=== PATIENT | female | born 1955 | race Caucasian/White ===

== ENCOUNTER 2016-09-16 00:54 | Day surgery (SDC) | payer OTHER ==
[~2016-09-16] VITALS: Ht 157.5 cm; Wt 63.0 kg
[~2016-09-16 00:54] MED LIST: AMLO5TAB2 PO; ASPI-973 PO; ATRV10T PO; ESTR0.5T; HYDR-4003 PO; LEVO50TA6 PO; LISI10TA PO
[2016-09-16] MEDS ORDERED: Propofol 10 mg/mL 20 mL Inj ONE (00:55)
[2016-09-16] MEDS ORDERED: Lactated Ringer's 1,000 ML IV ONE (06:00)
[2016-09-16 14:33] VITALS: BP 106/59; PULSE 60; RESP 16; O2SAT 98
[2016-09-16] MEDS ORDERED: METO100T3 PO (14:35)
--- NOTE | 2016-09-16 15:15 | PCM.HPANE ---
Patient Data Date of Service: Sep 16, 2016 Surgeon Admitting Provider: Attending Provider:Db Ivey MD Primary Care Physician:Nicole Rai MD Other Provider:Flo Jackson Anesthesia Reason for Visit Early Satiety Ht/WT & BMI Height (Feet): 5 Height (Inches): 2 Weight (Kilograms): 63.05 Body Mass Index 25.00 Allergies Coded Allergies: Sulfa (Sulfonamide Antibiotics) (Verified Allergy, Unknown, 09/15/16) Past Anesthesia History Anesthesia History: Denies:: Abnormal Airway, Anesthesia Reactions, Difficult Intubation, Fam Anesthesia Reaction, Fam Malignant Hypertherm, Malignant Hyperthermia Diabetes History Hx Diabetes?: No MRSA MRSA: No Medications Blood Thinner: Aspirin Last Dose Blood Thinner: Sep 15, 2016 Hypertension Medication: Yes Home Meds Incl Beta Rhona: Yes Date Beta Rhona Taken: Sep 16, 2016 Time Beta Rhona Taken: 529 Reported Medications Metoprolol Tartrate 100 Mg [id number] Mg PO BID 30 Days Ref 0 09/16/16 Lisinopril 10 Mg [id number] Mg PO DAILY 30 Days Ref 0 09/15/16 Levothyroxine 50 Mcg [id number] Mcg PO DAILY Ref 0 09/15/16 Hydrocodone-Acetaminophen 5-325 mg 1 Each Tablet1 Tablet PO Q4H PRN For Pain Ref 0 09/15/16 Estradiol 0.5 Mg Tablet 09/15/16 Atorvastatin (Lipitor)10 Mg Tab10 Mg PO DAILY Ref 0 09/15/16 Aspirin 81 Mg [id number] Mg PO DAILY Ref 0 09/15/16 Amlodipine 5 Mg Tablet5 Mg PO DAILY Ref 0 09/15/16 History History of ENT Problems?: No HEENT History: Denies:: Abnormal Airway Difficult Intubation Dysphagia Hearing Problem Denture Type: None Teeth Condition: Within Normal Limits Hx of Heart Problems?: Yes Cardiovascular History: Positive for:: Hypertension Denies:: AICD Atrial Fibrillation Chest Pain Pacemaker Valvular Heart Disease Hx of Respiratory Problem?: Yes Respiratory History: Positive for:: Pneumonia (3 yrs ago. has had vaccine since) Denies:: Asthma COPD Cough Hemoptysis Tuberculosis Hx Neurologic Problems?: No Neurological History: Denies:: CVA Hx of GI Problems?: Yes Hx of Problems?: No Female Hx: Denies:: Currently Hx Musculoskeletal Problems?: No Musculoskeletal History: Denies:: Fibromyalgia Joint Replacement Psycho Social History: Denies:: Anxiety Hx Depression Hx Surgeries?: Yes (hysterectomy, carpel tunel, breast implants ) Hx Any Other Health Problems?: Yes Hx Diabetes: No Hx Alcohol Use: Yes Stop/Bang Treated for Sleep Apnea?: No Do You Have a CPAP Machine?: No S-Snoring: Do You Snore Loudly: Yes T-Tired: feel tired, fatigued: No O-Obsered: Observed not breath: No P-Blood Pressure: treated: Yes B- Body Mass Index > 35 kg/m2: No A- Age over 50: Yes N- Neck Large Circumference: No G- Gender Male: No OSVALDO Total Score: 3 Risk Assessment Category Category 1A: Patient has history of documented sleep apnea, and HAS NOT received any narcotic, sedative or anesthesia administration during this stay. Category 1B: Patient has history of documented sleep apnea, and HAS received any narcotic , sedative or anesthesia administration during this stay Category 2: Patient has SUSPECTED Obstructive Sleep Apnea, and HAS received any narcotic , sedative or anesthesia administration during this stay. Category 3: Patient has SUSPECTED Obstructive Sleep Apnea and HAS NOT received narcotic, sedative or anesthesia administration during this stay. Category 4: Outpatient in Procedural Areas with known sleep apnea or who screen positive for High Risk via the STOP/BANG questionnaire. Exam Exam Vital Signs Vital Signs Date Time Temp Pulse Resp B/P Pulse Ox O2 Delivery O2 Flow Rate FiO2 09/16/16 14:33 60 16 106/59 98 Room Air General Appearance: Alert, Oriented X3, Cooperative, No Acute Distress HEENT/AIRWAY: MP 2 Lungs: Normal Air Movement Heart: Exam Unremarkable Meds/Labs/Diagnostics Admission Meds Current Medications Lactated Ringer's (Lr) 1,000 ml @ 10 mls/hr Q24H ONCE IV Last administered on 09/16/16t 14:42; Start 09/16/16 at 06:00; Stop 09/17/16 at 05:59 Plan Impression Patient chart reviewed, patient interviewed and anesthestic plan with risks, benefits, and alternatives discussed, and informed consent obtained. ASA Physical Status: ASA2 Mod Systemic Disease Anesthetic Plan: MAC Bene/Risks/Altern/Consents: Yes HP Complete Prior to Induction: Yes Ezra Quiroz MD Sep 16, 2016 15:15
[2016-09-16] MEDS ORDERED: Lactated Ringer's 1,000 ML IV SCH (15:16)
[2016-09-16] MEDS ORDERED: MetoCLOpramide 5 mg/mL 2 mL Inj IVPUSH PRN (15:20)
[2016-09-16] MEDS ORDERED: Ondansetron 2 mg/mL 2 mL Inj IVPUSH PRN (15:20)
[2016-09-16 15:31] VITALS: BP 93/61; PULSE 61; RESP 14; O2SAT 99
--- NOTE | 2016-09-16 15:32 | PCM.ANEP1 ---
Post Anesthesia PACU Phase 1 Assessment Date of Service: Sep 16, 2016 Vital Signs Vital Signs Date Time Temp Pulse Resp B/P Pulse Ox O2 Delivery O2 Flow Rate FiO2 09/16/16 15:31 61 14 93/61 99 Room Air 09/16/16 14:33 60 16 106/59 98 Room Air Anesthetic Administered: MAC Level of Alertness: Awake, talking HERCULES's with Equal Strength: Yes Pain: No Nausea or Vomiting: No CV Function & Hydration Stable: Yes Airway Device: Oxygen Delivery: Room Air Lungs: Normal Air Movement Dermatome Level: Full Sensation PACU Phase 2 Assessment Complications: No Follow up Care: N/A Patient Instructions Provided: N/A Ezra Quiroz MD Sep 16, 2016 15:32
[2016-09-16 15:41] VITALS: BP 133/68; PULSE 58; RESP 14; O2SAT 97
--- NOTE | 2016-09-16 15:41 | ENDO ---
[address] [address] ENDOSCOPY PROCEDURE PATIENT: DIEGO SIDDIQUI : 1955 MR#: [id number] ADMIT: 09/16/2016 JOB ID: [id number] DATE OF SERVICE: 09/16/2016 TYPE OF OPERATION: Esophagogastroduodenoscopy with biopsy. PREOPERATIVE DIAGNOSIS(ES): Early satiety. POSTOPERATIVE DIAGNOSIS(ES): Mild nonerosive gastritis. ANESTHESIA: Monitored anesthesia care. COMPLICATIONS: None. BLOOD LOSS: Minimal. DESCRIPTION OF PROCEDURE: After risks and benefits were explained to the patient, informed consent was obtained. After anesthesia administered, upper endoscope was then inserted into the mouth and intubated into esophagus, stomach, second portion of duodenum. Mucosa carefully examined. After procedure was done, the scope was withdrawn and the procedure terminated. FINDINGS: Upon inspection of the esophagus, esophagus was normal without masses, ulcers, or lesions. Z-line located 40 cm from incisors. Upon entry into the stomach, there was mild nonerosive gastritis that was seen. Retroflexion was normal. Duodenal bulb, first and second portions were normal. Biopsies taken of duodenum, antrum and body of stomach. IMPRESSIONS: Mild nonerosive gastritis. RECOMMENDATION: Await pathology results. Follow up in GI clinic as needed.
[2016-09-16 15:50] VITALS: BP 136/71; PULSE 53; RESP 16; O2SAT 100
== END 2016-09-16 23:59 | disposition home or self-care (01) ==
LOC: END 00:54
PROVIDERS: ATTEND Internal Medicine Gastroenterology
DX: K29.70 Gastritis, unspecified, without bleeding (principal); R63.0 Anorexia; E03.9 Hypothyroidism, unspecified; E78.5 Hyperlipidemia, unspecified; Z79.82 Long term (current) use of aspirin
CPT/HCPCS: 43239; J7120